=== PATIENT | male | born 1945 | race Caucasian/White ===

== ENCOUNTER 2016-11-15 09:42 | Outpatient (CLI) | payer OTHER ==
[~2016-11-15] VITALS: Ht 150.5 cm; Wt 55.9 kg
[2016-11-15 10:00] VITALS: BP 125/78; PULSE 81; RESP 16; Ht 150.5 cm; Wt 55.9 kg
[2016-11-15] MEDS ORDERED: LISI20TA11 PO (10:06)
[2016-11-15] MEDS ORDERED: ATOR40TA68 PO (10:06)
[2016-11-15] MEDS ORDERED: NORT10CA2 PO (10:06)
--- NOTE | 2016-11-15 10:32 | CONS ---
Date/Time of Note Date/Time of Note DATE: 11/15/16 TIME: 10:31 Assessment/Plan Assessment/Plan Additional Assessment/Plan [facility] INITIAL OUTPATIENT CONSULTATION NOTE DATE OF CONSULTATION: 11/15/2016 PLACE OF SERVICE: [facility] ASSESSMENT AND PLAN: A very-pleasant 71-year-old gentleman with a few comorbid issues including history of prostate cancer, with a few month history of noticing a possible bulge in the right groin area only during urination at nighttime and only intermittently. I do not appreciate an obvious hernia in the right groin region, and the patient does not present classic symptoms of a symptomatic groin hernia that would require semiurgent or even elective operative intervention at this time. Symptoms may be related to other factors ( ? Prostate cancer therapy). A CT scan of abdomen and pelvis with IV and oral contrast will likely clarify the clinical picture if it better. Even with a hernia, the patient may be able to be observed over time over the next few months and if this becomes more symptomatic, for him to have an elective hernia repair at that time. I explained the rationale behind my decision very carefully and answered all the patient's questions to the best my ability. The patient (no family present during my discussions with the patient) appeared to understand and agreed with the proposed plan of care. With above assessment, I recommended the followin. CT scan of abdomen and pelvis with IV and oral contrast 2. Follow-up with us after above is done Thank you very much for having me involved in the care of this very pleasant patient and wonderful family. Please feel free to contact me with any questions at [phone]. Disclaimer: Inadvertent spelling and grammatical errors are likely due to EHR/ dictation software use and do not reflect on the quality of delivered patient care. Updated clinical summary: Very pleasant 71-year-old gentleman with a few comorbid issues including history of prostate cancer, with a few month history of noticing a possible bulge in the right groin area only during urination at nighttime and only intermittently. Comorbidities: 1. Prostate cancer, stage T1c, [place] score 6, PSA 2.4, status post prostate brachytherapy January 2008; appears to be in remission and well-controlled; followed by Dr. Yu 2. Essential hypertension 3. Hypercholesterolemia 4. Diabetes mellitus type 2 5. Vitamin B12 deficiency 6. Low back pain 7. Status post hemorrhoidectomy HISTORY OF PRESENT ILLNESS: The patient is a very pleasant 71-year-old gentleman with a few comorbid issues including history of prostate cancer, with a few month history of noticing a possible bulge in the right groin area only during urination at nighttime and only intermittently. No reported pain. No radiation of pain. No occurrence of symptoms with prolonged walking, exercise, or during other changes in position. No difficulty with bowel obstruction or other emergencies that required urgent or emergent care or hospitalizations. No changes in bowel or bladder habits. No prior occurrence of symptoms. No difficulty in the left groin region. ALLERGIES: Ibuprofen/Advil with lip swelling MEDICATIONS Carefully recorded and reviewed in the electronic health record system; include atorvastatin, cyanocobalamin, lisinopril, nortriptyline, and vitamin E capsules SOCIAL HISTORY: The patient lives with family. Currently retired. Has 3 children.-Tob;-ETOH;-IVDU FAMILY HISTORY: There are no significant medical, surgical or oncologic issues in the family as reported by the patient or reflected in the chart. REVIEW OF SYSTEMS: Other than mentioned, there are no pertinent positives or pertinent negatives in a complete 14 point review of systems. PHYSICAL EXAMINATION GENERAL: The patient appears to be a very pleasant gentleman of descent sitting in a chair and appearing stated age and otherwise in no acute distress. BMI: 24.7 VITAL SIGNS: Carefully recorded and reviewed in the electronic health record system HEENT: Normocephalic and atraumatic. Extraocular muscles and hearing are grossly intact bilaterally and symmetrically. Sclerae are nonicteric. Oral cavity is clear; oral mucosa appear to be pink and moist. Dentition: fair. NECK: Supple. There is no lymphadenopathy or JVD. There is no submental, submandibular or supraclavicular lymphadenopathy. CHEST: Rises symmetrically with each breath; patient is breathing comfortably. There are no audible wheezes, rales or rhonchi on the gross exam. HEART: Pulse is regular and palpable on the right wrist. Capillary refill is normal. Carotid pulses are palpable bilaterally and symmetrically in the neck. EXTREMITIES: Lower extremities contain no pitting edema around the ankles bilaterally and symmetrically. ABDOMEN: Abdomen is soft, nontender and nondistended. No evidence of ascites, organomegaly, caput medusae, engorged subcutaneous veins, or other abnormalities. There are no peritoneal signs or guarding. Careful examination of the left groin showed presence of no abnormalities. Right groin showed no obvious abnormalities and no obvious large hernia with Valsalva maneuvers. Skin overlying the area appear to be pink and normal. No degree of tenderness to palpation of the internal ring. The internal ring felt to be smaller than 1 cm. SKIN: Appears to be pink and feels warm to touch. NEUROLOGIC: Awake, alert, and follows commands appropriately. LABORATORY DATA: Carefully reviewed and recorded in the patient's office chart; August 2016: PSA less than 0.1 IMAGING: No images available for this visit. Consultation Date/Type/Reason Admit Date/Time Exam/Review of Systems Vital Signs Vitals Vital Signs Date Time Temp Pulse Resp B/P Pulse Ox O2 Delivery O2 Flow Rate FiO2 11/15/16 10:00 98.5 81 16 125/78 96 Room Air ALVARO YAO M.D. Nov 15, 2016 10:32
== END 2016-11-15 16:11 | disposition home or self-care (01) ==
LOC: HPC 09:42
PROVIDERS: ATTEND Transplant Surgery
DX: R19.00 Intra-abdominal and pelvic swelling, mass and lump, unspecified site (principal); I10 Essential (primary) hypertension; E78.00 Pure hypercholesterolemia, unspecified; E11.9 Type 2 diabetes mellitus without complications; E53.8 Deficiency of other specified B group vitamins; M54.5 Low back pain; Z85.46 Personal history of malignant neoplasm of prostate
CPT/HCPCS: G0463

== ENCOUNTER 2016-12-27 10:40 | Outpatient (CLI) | payer OTHER ==
[~2016-12-27] VITALS: Ht 151.1 cm; Wt 55.9 kg
[~2016-12-27 10:40] MED LIST: ATOR40TA68 PO; LISI20TA11 PO; NORT10CA2 PO
[2016-12-27 10:41] VITALS: BP 108/76; PULSE 108; RESP 16; Ht 151.1 cm; Wt 55.9 kg
--- NOTE | 2016-12-27 18:53 | PN ---
Date/Time of Note Date/Time of Note DATE: 12/27/16 TIME: 18:50 Assessment/Plan Assessment/Plan Assessment/Plan [facility] Outpatient Progress Note Date of Service: 12/27/2016 Today's Assessment & Plan: Patient is a very-pleasant 71-year-old gentleman with a few comorbid issues including history of prostate cancer, with a few month history of noticing a possible bulge in the right groin area only during urination at nighttime and only intermittently. Most recent CT scan of abdomen and pelvis that we request that was done on 12/05/2016 and this shows no abdominopelvic mass, lymphadenopathy, or focal acute inflammatory process. There is a moderate to large hiatal hernia. Specific to the area of the groins: There are small bilateral fat-containing inguinal hernias. This CT supports the clinical impression of insignificant hernia presents as etiology behind patient's occasional discomfort. I had a very balanced discussion with the patient today and gave him the option of watchful waiting versus operative intervention. After careful consideration of his options, the patient appeared to want to do watchful waiting for now. I am fully supportive of this decision and I am available to the patient if at any time he becomes more symptomatic or wishes to change his mind. All questions answered. Patient appeared to understand and agreed with the plans. With above assessment, I recommended the followin. Continue watchful observation 2. Follow with PCP 3. Follow-up with us as needed Thank you very much for having me involved in the care of this very pleasant patient and wonderful family. Please feel free to contact me with any questions at [phone]. Disclaimer: Inadvertent spelling and grammatical errors are likely due to EHR/ dictation software use and do not reflect on the quality of delivered patient care. Updated clinical summary: Very pleasant 71-year-old gentleman with a few comorbid issues including history of prostate cancer, with a few month history of noticing a possible bulge in the right groin area only during urination at nighttime and only intermittently. Comorbidities: 1. Prostate cancer, stage T1c, [place] score 6, PSA 2.4, status post prostate brachytherapy January 2008; appears to be in remission and well-controlled; followed by Dr. Yu 2. Essential hypertension 3. Hypercholesterolemia 4. Diabetes mellitus type 2 5. Vitamin B12 deficiency 6. Low back pain 7. Status post hemorrhoidectomy Subjective: No major events or complaints; no major abd pain and not on any pain medications ; no n/v/d; no sob or cp; + flatus; + BM and normal; + activity Objective: Vitals: See below Exam: GENERAL: On exam, the patient was sitting up in a chair and appeared to be comfortable and in no acute distress. ABDOMEN: Soft, nontender and nondistended. Groin areas appear to be asymptomatic and no evidence of hernia. There are no peritoneal signs or guarding. SKIN: Skin appears to be pink and feels warm to touch. NEUROLOGIC: Patient is awake, alert, and follows commands appropriately. Exam/Review of Systems Vital Signs Vitals Vital Signs Date Time Temp Pulse Resp B/P Pulse Ox O2 Delivery O2 Flow Rate FiO2 12/27/16 10:41 98.2 108 16 108/76 98 Room Air ALVARO YAO M.D. Dec 27, 2016 18:53
== END 2016-12-27 15:03 | disposition home or self-care (01) ==
LOC: HPC 10:40
PROVIDERS: ATTEND Transplant Surgery
DX: K44.9 Diaphragmatic hernia without obstruction or gangrene (principal); I10 Essential (primary) hypertension; E78.00 Pure hypercholesterolemia, unspecified; E11.9 Type 2 diabetes mellitus without complications; Z85.46 Personal history of malignant neoplasm of prostate
CPT/HCPCS: G0463